=== PATIENT | female | born 1995 | race African-American/Black ===

== ENCOUNTER 2019-11-23 04:49 | Inpatient (IN) | payer MEDICAID ==
[~2019-11-23] VITALS: Ht 142.2 cm; Wt 63.0 kg
[2019-11-23] VITALS (13 sets, daily range): BP systolic 100–131; BP diastolic 53–81; Ht 142.2 cm; Wt 63.0 kg
--- NOTE | ~2019-11-23 | OP ---
PATIENT NAME: BUTCH COLE MEDICAL RECORD: [id number] :94 LOCATION:[id number] ADMISSION DATE:11/23/19 SURGEON: SABINE KNOTT DO DATE OF OPERATION: 11/23/2019 PREOPERATIVE DIAGNOSIS: Scheduled repeat , 39 weeks 2 days. POSTOPERATIVE DIAGNOSIS: Scheduled repeat , 39 weeks 2 days. PRIMARY SURGEON: Sabine Knott DO ANESTHESIA: Spinal. PROCEDURE: Primary low transverse section via Pfannenstiel incision. FINDINGS: Female infant, weight 5 pounds 11 ounces, Apgars 8 and 9, delivered at 7:57 a.m. Normal appearing uterus, bilateral fallopian tubes, bilateral ovaries. SPECIMENS: Placenta and cord blood. ESTIMATED BLOOD LOSS: 800 cc. IV FLUIDS: 1200 cc. URINE OUTPUT: 550 cc, clear urine. COMPLICATIONS: None. CONDITION: Stable. DESCRIPTION OF PROCEDURE: The risks, benefits, alternatives and indications of the procedure were discussed with the patient. She voiced understanding of the procedure and signed the consent. She was taken to the OR where spinal anesthesia was administered and found to be adequate. She was placed in the dorsal supine position with a leftward tilt. She was prepped and draped in normal sterile fashion. A Pfannenstiel skin incision was made with the scalpel and carried down to the underlying layer of the fascia with the Bovie. The fascia was incised in the midline and extended laterally. The inferior aspect of the fascial incision was grasped with Sudhakar clamps and the rectus muscles dissected off sharply. Attention was then turned to the superior aspect of the fascial incision and the rectus muscle was dissected off in a similar fashion. The rectus muscle was in the midline down to the level peritoneum. The peritoneum was identified and noted to be free of adherent bowel and entered bluntly. The peritoneum was further with gentle traction. The bladder blade was inserted. The uterus was incised in a transverse fashion lower uterine segment. The incision was extended with cephalad caudad traction. The 's head was brought to the incision. Nuchal cord times 1 was noted and reduced over the head prior to delivery of the body. The infant delivered without difficulty. Mouth and nose were suctioned. Cord was clamped and cut and the infant was handed off to waiting pediatricians. The placenta was manually removed. The uterus was exteriorized and a moist lap was used to assure complete removal of placenta membranes. The hysterotomy was closed with 0 Vicryl in a running locked fashion with good hemostasis noted. The posterior cul-de-sac was irrigated with warm sterile water and the uterus, tubes and OPERATIVE REPORT [id number] BUTCH COLE ovaries were otherwise noted to be normal and returned back to the abdominal cavity. The moist laparotomy sponge was used to assure complete removal of blood clots and fluid from the abdominal cavity. Hysterotomy was reinspected and noted to be hemostatic. The rectus muscle was closed with 2-0 Monocryl in a running fashion with good hemostasis. Fascial incision was closed with 0 Vicryl in a running fashion with good hemostasis. The skin was closed in a subcuticular fashion with 3-0 Monocryl with Dermabond covering. All needle, lap, sponge, and instrument counts were correct times 2. The patient tolerated the procedure well. She was taken to the recovery room in stable condition. TRANSINT:[id number] Voice Confirmation ID: [id number] DOCUMENT ID: [id number] SABINE KNOTT DO CC: [id number] DICTATION DATE: 11/23/19 1545 MINER OPERATOR: 11/23/19 2340 ADM IN [facility] [address] [id number]
[~2019-11-23 04:49] MED LIST: IBUPROFEN600 MG PO; PERCOCET 10/3251 TA1 PO
[2019-11-23 06:11] LABS: HEMATOCRIT 34.9 % (36.0-48.0); HEMOGLOBIN 11.6 g/dL (12-16); MCH 27.2 pg (26.0-34.0); MCHC 33.2 g/dL (31.0-37.0); MCV 81.7 fL (80.0-100.0); MEAN PLATELET VOLUME 10.1 fL (7.4-10.4); RBC 4.27 10x6/uL (4.00-5.40); WBC 13.1 10x3/uL (4.8-10.8)
[2019-11-23] MEDS ORDERED: TYLENOL PM1 TAB PO (06:15)
[2019-11-23] MEDS ORDERED: PRENAVITE1 TAB PO (06:15)
--- NOTE | 2019-11-23 09:07 | NUR ---
FUNDUS IS FIRM, MIDLINE. U1. DAVID PAD IN PLACE. MODERATE RUBRA LOCHIA NOTED ON PAD. NO CLOTS PRESENT. WILL CONTINUE TO MONITOR.
--- NOTE | 2019-11-23 09:20 | NUR ---
RECEIVED PT FROM VIA BED TO ROOM 1276. BED LOCKED AND PLACED IN LOW POSITION. VSS. PT AWAKE. AAO X 3. HRRR WITHOUT AUDIBLE MURMUR. BBS CLEAR. BS X 4. ABDOMEN SOFT/NON-DISTENDED. FUNDUS FIRM AT U/U. RUBRA LOCHIA SMALL AMT. NO CLOTS NOTED. PERIPAD CHANGED. GALDAMEZ TO GRAVITY. CLEAR, YELLOW URINE NOTED IN BAG. PIV TO RIGHT FOREARM. SITE CLEAR. LR WITH PITOCIN 20 UNITS INFUSING AT 125 ML/HR. SR UP X 2. CALL LIGHT IN REACH. ABDOMINAL DRESSING DRY. NO DRAINAGE NOTED. SR UP X 2. CALL LIGHT IN REACH.
--- NOTE | 2019-11-23 09:26 | NUR ---
PT C/O INCISIONAL PAIN OF "8" ON 0-10 PAIN SCALE. TORADOL 30 MG GIVEN SIVP OVER 2 MINUTES. PT INSTRUCTED ON MED. VERBALIZES UNDERSTANDING.
[2019-11-23 09:43] LABS: UDS - AMPHET NEGATIVE QUAL (NEGATIVE); UDS - BARB NEGATIVE QUAL (NEGATIVE); UDS - BENZO NEGATIVE QUAL (NEGATIVE); UDS - COCAINE NEGATIVE QUAL (NEGATIVE); UDS - OPIATE NEGATIVE QUAL (NEGATIVE); UDS - PCP NEGATIVE QUAL (NEGATIVE); UDS - THC NEGATIVE QUAL (NEGATIVE)
[2019-11-23 10:00] LABS: BILIRUBIN NEGATIVE (NEGATIVE); GLUCOSE NEGATIVE (NEGATIVE); KETONE NEGATIVE (NEGATIVE); NITRITE NEGATIVE (NEGATIVE); SPECIFIC GRAVITY 1.005 (1.005-1.020); UROBILINOGEN NORMAL (NORMAL)
[2019-11-23 10:01] LABS: BACTERIA FEW /hpf (NEGATIVE); EPITHELIAL CELLS OCC /hpf (0-5); RED CELLS - URINE OCC /hpf (0-5); WHITE CELLS - URINE RARE /hpf (NEGATIVE)
--- NOTE | 2019-11-23 10:20 | NUR ---
PT LYING SUPINE IN BED. WAKES UPON VERBAL STIMULATION. PT DENIES C/O OR NEEDS. FUNDUS FIRM AT U/U. RUBRA LOCHIA SCANT AMT. PERIPAD NOT CHANGED AT THIS TIME.
--- NOTE | 2019-11-23 11:29 | NUR ---
PERICARE DONE. RUBRA LOCHIA SMALL TO MOD AMT. NO CLOTS NOTED. ABDOMINAL DRESSING DRY WITHOUT DRAINAGE. PT MOVES WELL IN BED. C/O ABDOMINAL/INCISIONAL CRAMPING OF "9" ON 0-10 PAIN SCALE. MORPHINE 4 MG GIVEN SIVP OVER 2 MINUTES. PT INSTRUCTED ON MED. VERBALIZES UNDERSTANDING. FRESH ICE PACK TO INCISION.
--- NOTE | 2019-11-23 13:21 | NUR ---
PT SITTING UP IN BED. CONSUMING CLEAR LIQUID DIET. TOLERATING WELL.
--- NOTE | 2019-11-23 14:05 | NUR ---
PT SITTIN UP IN BED. WATCHES TV. REQUESTS AND RECEIVES APPLE JUICE AND BEEF BROTH.
--- NOTE | 2019-11-23 15:05 | NUR ---
TORADOL 30 MG GIVEN SIVP OVER 2 MINUTES. PT INSTRUCTED ON MED. VERBALIZES UNDERSTANDING. HOLDS INFANT WITH MUCH WARMTH SHOWN. DENIES NEEDS.
--- NOTE | 2019-11-23 15:26 | NUR ---
DR KNOTT ON UNIT. ORDERS RECEIVED.
--- NOTE | 2019-11-23 16:20 | NUR ---
PT C/O INCISIONAL PAIN OF "7" ON 0-10 PAIN SCALE. MORPHINE 4 M GIVEN IVP OVER 2 MINUTES. PT STATES PASSING GAS. DENIES NEEDS. HOLDS INFANT WITH MUCH WARMTH SHOWN.
--- NOTE | 2019-11-23 17:04 | NUR ---
PT SITTING UP IN BED. CONSUMING REG DIET. TOLERATING WELL. REQUESTS MORE PUDDING SERVED. DIETARY MESSAGE SENT FOR MORE PUDDING. PT DENIES C/O.
--- NOTE | 2019-11-23 18:15 | NUR ---
PT SITTING UP IN BED. WATCHES TV. VSS. FUNDUS FIRM AT U/U. RUBRA LOCHIA MOD AMT. NO CLOTS NOTED. PERICARE DONE. CHUX AND PINK PAD, PERIPADS CHANGED. I/O COMPLETED. PT DENIES C/O. REQUESTS AND RECEIVES ICE WATER AND APPLE JUICE. FRESH ICE PACK TO INCISION. DRESSING DRY WITHOUT DRAINAGE NOTED.
--- NOTE | 2019-11-23 20:15 | NUR ---
PT REC'D IN BED AT THIS TIME. COMPLAINS OF PAIN AT 910. IV OF PITOCIN DISCONTINUED AT THIS TIME. DRESSING TO ABDOMEN CDI. PT STATES THAT SHE IS PASSING FLATUS. GALDAMEZ CATH PATENT WITH 250 ML. OF YELLOW URINE NOTED. SCDS IN PLACE AND FUNCTIONAL. NO ACUTE DISTRESS. SEE FLOWSHEET FOR ADDITIONAL CHARTING. Moira MARADIAGA RN
--- NOTE | 2019-11-23 20:24 | NUR ---
PERCOCET AND MOTRIN GIVEN AT THIS TIME FOR PAIN OF 9/10. WILL MONITOR. Kathy MARADIAGA RN
--- NOTE | 2019-11-23 20:30 | NUR ---
GALDAMEZ CATH DISCONTINUED WITH 250 ML OF URINE NOTED. PT UP FOR PERICARE. PT VOIDED APPROX 25 ML. WILL CONTINUE TO MONITOR. Kathy MARADIAGA RN
--- NOTE | 2019-11-23 21:05 | NUR ---
PT SITTING UP IN BED AT THIS TIME EATIN. RATES PAIN A 6/10. L BERNADETTE MARADIAGA
--- NOTE | 2019-11-23 22:05 | NUR ---
PT REC'D UP IN BED WITH INFANT AT THIS TIME. NO DISTRESS NOTED. NO NEEDS VOICED. Kathy MARADIAGA RN
--- NOTE | 2019-11-23 23:45 | NUR ---
PT REC'D IN BED AT THIS TIME. VOIDED 450 ML. ICE PACK REPLENISHED AT THIS TIME DUE TO INCREASE IN PAIN. PT STATES THAT ONLY ONE SIDE IS BURNING. WILL CONTINUE TO MONITOR. Kathy MARADIAGA RN
[2019-11-24 00:28] VITALS: BP 102/51
--- NOTE | 2019-11-24 00:31 | NUR ---
VSS. PT MEDICATED WITH PERCOCET 10 FOR PAIN. WILL MONITOR. Kathy MARADIAGA RN
--- NOTE | 2019-11-24 03:19 | NUR ---
PT MEDICATED WITH SCHEDULED MOTRIN AT THIS TIME. WILL CONTINUE TO MONITOR. Kathy MARADIAGA RN
[2019-11-24 04:25] VITALS: BP 102/54
--- NOTE | 2019-11-24 04:25 | NUR ---
VSS. PT STATES THAT SHE IS HURTING AT THIS TIME. Kathy MARADIAGA RN
--- NOTE | 2019-11-24 04:29 | NUR ---
PT MEDICATED AT THIS TIME WITH PERCOCET FOR PAIN. Kathy MARADIAGA RN
[2019-11-24 06:09] LABS: RAPID PLASMA REAGIN Non Reactive (Non Reactive)
--- NOTE | 2019-11-24 06:35 | NUR ---
PT STATES THAT PAIN IS A 5/10 AFTER PAIN MEDICATIN. WILL CONTINUE TO MONITOR. Kathy MARADIAGA RN
[2019-11-24 06:55] LABS: BASOPHILS 0.2 % (0-2); EOSINOPHILS 1.2 % (0-7); HEMATOCRIT 30.1 % (36.0-48.0); HEMOGLOBIN 9.7 g/dL (12-16); IMMATURE GRANULOCYTES 0.4 % (0-5); LYMPHOCYTES 24.4 % (15-50); MCH 26.8 pg (26.0-34.0); MCHC 32.2 g/dL (31.0-37.0); MCV 83.1 fL (80.0-100.0); MEAN PLATELET VOLUME 9.9 fL (7.4-10.4); MONOCYTES 6.3 % (2-11); NEUTROPHILS 67.5 % (40-80); PLATELET COUNT 171 10x3/uL (130-400); RBC 3.62 10x6/uL (4.00-5.40); RDW 13.9 % (11.5-14.5); WBC 12.2 10x3/uL (4.8-10.8)
[2019-11-24 08:00] VITALS: BP 105/61
--- NOTE | 2019-11-24 08:00 | NUR ---
AT BEDSIDE FOR ASSESSMENT. SEE FLOWSHEET. PT REQUESTS PAIN MED WHEN AVAILABLE.
--- NOTE | 2019-11-24 10:17 | NUR ---
DR. KNOTT HERE TO SEE PATIENT.
--- NOTE | 2019-11-24 11:15 | NUR ---
DRESSING REMOVED. INCISION CLEAN, DRY AND INTACT WITHOUT DRAINAGE.
[2019-11-24 14:40] VITALS: BP 102/55
--- NOTE | 2019-11-24 14:53 | NUR ---
PT UP AMBULATING IN THE HALLWAY PUSHING IN CRIB.
--- NOTE | 2019-11-24 18:45 | NUR ---
PT RESTING IN BED. NO C/O PAIN. NO NEEDS VOICES AT THIS TIME.
--- NOTE | 2019-11-24 19:45 | NUR ---
PT REC'D RESTING QUIETLY ON LEFT SIDE,CALL LIGHT W/I REACH,SR UP X 2, C/O INCISIONAL BURNING PAIN, ICE PACK GIVEN AND INFORMED WOULD BRING PAIN MED SOON IT IS AVAILABLE. SEE SHIFT ASSESSMENT. NO FURTHER NEEDS VOICED.
[2019-11-24 19:46] VITALS: BP 101/56
--- NOTE | 2019-11-24 20:58 | NUR ---
to room to give pain med, pt request I look at incision as there was a spot of blood on panties, incision dry and well aproximated, no bleeding noted
--- NOTE | 2019-11-24 22:18 | NUR ---
PT SITTING ON SIDE OF BED HOLDING AT THIS TIME. STATES THAT HER PAIN IS A 6/10 AT THIS TIME. WILL CONTINUE TO MONITOR. Kathy MARADIAGA RN
--- NOTE | 2019-11-25 00:30 | NUR ---
resting quietly in room w/ , no needs voiced at this time
--- NOTE | 2019-11-25 02:30 | NUR ---
states starting to feel more incisional pain, informed would bring ibuprofen at 3
--- NOTE | 2019-11-25 04:30 | NUR ---
feeling relief from pain, requesting snacks, peanut butter and crackers given, assisted w/ swaddle of infant, returned demonstration
[2019-11-25 07:27] VITALS: BP 109/55
--- NOTE | 2019-11-25 07:27 | NUR ---
RECEIVED PT SITTING UP IN BED. AAO X 3. VSS. HRRR WITHOUT AUDIBLE MURMUR. BBS CLEAR. BS X 4. ABDOMEN SOFT/NON-DISTENDED. FUNDUS FIRM AT U/1. RUBRA LOCHIA SMALL AMT. PT DENIES PASSING CLOTS. ABDOMINAL INCISION WITH DERMABOND. NO REDNESS, SWELLING OR DRAINAGE NOTED. NEG HOMANS' SIGN. PPP. NO EDEMA NOTED TO BLE. PT C/O INCISIONAL PAIN OF "6" ON 0-10 PAIN SCALE. PT C/O GAS PAIN. STATES DESIRE FOR DULCOLAX SUPPOSITORY. FRESH ICE WATER PROVIDED TO PT. SR UP X 2. CALL LIGHT IN REACH.
--- NOTE | 2019-11-25 08:27 | NUR ---
PT C/O GAS PAIN. REQUESTS AND RECEIVES DULCOLAX SUPPOSITORY PER RECTUM. MOTRING 600 MG ALSO GIVEN ORDERED. PT INSTRUCTED ON MEDS. VERBALIZES UNDERSTANDING.
--- NOTE | 2019-11-25 09:30 | NUR ---
PT LIBRARY SERIALS ASSISTANT LIGHT. STATES HAD BM. DENIES NEEDS.
--- NOTE | 2019-11-25 10:00 | NUR ---
PT AMBULATORY IN HALLS. TOLERATING ACTIVITY WELL.
[2019-11-25 10:55] VITALS: BP 115/74
--- NOTE | 2019-11-25 10:57 | NUR ---
VSS. PT STATES PAIN "6" ON 0-10 PAIN SCALE. PT UP TO BR AT THIS TIME. WILL CALL WHEN FINISHED FOR PAIN MED.
--- NOTE | 2019-11-25 11:23 | NUR ---
PT C/O INCISIONAL PAIN OF "6" ON 0-10 PAIN SCALE. PERCOCET 10/325 GIVEN PO ORDERED. PT INSTRUCTED ON MED. VERBALIZES UNDERSTANDING.
[2019-11-25] MEDS ORDERED: PERCOCET 5-3251 TAB PO (13:25)
--- NOTE | 2019-11-25 13:45 | NUR ---
PT GIVEN DISCHARGE INSTRUCTIONS. VERBALIZES UNDERSTANDING OF ALL INSTRUCTIONS. COPIES GIVEN TO PT. PT GIVEN RX FOR PERCOCET. PT INSTRUCTED ON ROOMING IN POLICY. PT VERBALIZES UNDERSTANDING. PT TRANSFERED VIA AMBULATORY TO ROOM 1222. PT DISCHARGED TO ROOMING IN STATUS.
== END 2019-11-25 13:45 | disposition home or self-care (01) | DRG 788 ==
LOC: D.LD 04:49 → D.WS 07:00 → D.LD 07:00
PROVIDERS: ADMIT Student in an Organized Health Care Education/Training Program; ATTEND Student in an Organized Health Care Education/Training Program
PROC: 10D00Z1 Extraction of Products of Conception, Low, Open Approach (ICD-10-PCS; principal; 2019-11-23 07:00)
DX: O99.824 Streptococcus B carrier state complicating childbirth (principal); Z3A.39 39 weeks gestation of pregnancy; Z37.0 Single live birth; O34.211 Maternal care for low transverse scar from previous cesarean delivery; O99.334 Smoking (tobacco) complicating childbirth; O69.81X0 Labor and delivery complicated by cord around neck, without compression, not applicable or unspecified